=== PATIENT | female | born 1965 | race Caucasian/White ===

== ENCOUNTER 2019-03-30 08:13 | Observation (INO) | payer OTHER ==
[~2019-03-30] VITALS: Ht 167.6 cm; Wt 101.6 kg
[2019-03-30] VITALS (33 sets, daily range): BP systolic 104–168; BP diastolic 54–103; PULSE 68–122; RESP 7–36; Ht 167.6 cm; Wt 101.6 kg
[~2019-03-30 08:13] MED LIST: AMLO-147 PO; LISI2.5T59 PO; LORA10TA3 PO; METF100010 PO
[2019-03-30] MEDS ORDERED: SOD CHLORIDE 0.9% 1,000 ML IV SCH (09:30)
[2019-03-30] MEDS ORDERED: FENTAnyl 50 MCG/ML VIAL IV PRN ×2 (10:30)
[2019-03-30] MEDS ORDERED: ALBUTEROL 0.083% (NEB) 2.5 MG/3 ML AMP HHN PRN ×2 (10:30→13:00)
[2019-03-30] MEDS ORDERED: ONDANSETRON 4 MG INJ IV PRN ×2 (10:30→17:30)
[2019-03-30] MEDS ORDERED: METOCLOPRAMIDE 10 MG INJ IV PRN (10:30)
[2019-03-30] MEDS ORDERED: DIPHENHYDRAMINE 50 MG INJ IV PRN (10:30)
[2019-03-30] MEDS ORDERED: MEPERIDINE 25 MG INJ IV PRN (10:30)
[2019-03-30] MEDS ORDERED: HYDROmorphONE 1 MG/5 ML IV SYRINGE IV PRN (10:30)
[2019-03-30] MEDS ORDERED: DESFLURANE 15 MIN ONE (11:00)
[2019-03-30] MEDS ORDERED: GLYCOPYRROLATE 0.4 MG INJ ONE (11:00)
[2019-03-30] MEDS ORDERED: FENTAnyl 50 MCG/ML VIAL ONE (11:09)
[2019-03-30] MEDS ORDERED: PROVENTIL HFA 6.7GM INHALER ONE (11:10)
[2019-03-30] MEDS ORDERED: LABETALOL HCL 20MG INJ ONE (11:32)
[2019-03-30] MEDS ORDERED: CLINDAMYCIN 900 MG (PMX) 50 ML IVPB ONE (11:36)
[2019-03-30] MEDS ORDERED: SUCCINYLCHOLINE CHLORIDE 100 MG/5 ML SYG IV ONE (11:36)
[2019-03-30] MEDS ORDERED: SUGAMMADEX SODIUM 200 MG/2 ML VIAL IV ONE (11:36)
[2019-03-30] MEDS ORDERED: ROCURONIUM 50 MG INJ ONE (11:36)
[2019-03-30] MEDS ORDERED: PROPOFOL 20 ML ONE (11:36)
[2019-03-30] MEDS ORDERED: LIDOCAINE 100 MG SYRINGE ONE (11:36)
[2019-03-30] MEDS ORDERED: STRONG IODINE 14 ML SOLUTION TOP ONE (11:41)
[2019-03-30] MEDS ORDERED: FERRIC SUBSULFATE 8 GM VIAL TOP ONE (11:46)
[2019-03-30] MEDS ORDERED: DEXAMETHASONE 4 MG/ML 5 ML INJ ONE (12:20)
[2019-03-30] MEDS ORDERED: MIDAZOLAM 1 MG/ML 2 ML INJ ONE (12:28)
[2019-03-30] MEDS ORDERED: IPRATROPIUM (NEB) 0.5 MG/2.5 ML AMP HHN PRN (13:00)
[2019-03-30] MEDS ORDERED: LEVALBUTEROL (NEB) 0.63 MG/3 ML AMP HHN PRN (13:00)
[2019-03-30] MEDS ORDERED: RACEPINEPHRINE 2.25%(NEB) 0.5 ML AMP HHN ONE (13:00)
[2019-03-30] MEDS ORDERED: LEVALBUTEROL (NEB) 1.25 MG/0.5 ML AMP HHN PRN (13:00)
[2019-03-30] MEDS: HYDROmorphONE 1 MG/5 ML IV SYRINGE IV PRN ×2 (13:27→13:40)
[2019-03-30] MEDS ORDERED: morphine 2 MG INJ IV PRN (17:30)
[2019-03-30] MEDS: ACCU-CHEK XX SCH ×2 (17:30→21:00)
[2019-03-30] MEDS ORDERED: HYDROCODONE/APAP (5/325) TAB PO PRN (17:30)
[2019-03-30] MEDS ORDERED: ALBUTEROL/IPRATROPIUM (NEB) 3 ML AMP HHN PRN (17:30)
[2019-03-30] MEDS: INSULIN ASPART [NOVOLOG] 3 ML PEN SC SCH ×2 (18:00→21:21)
[2019-03-30] MEDS ORDERED: DEXTROSE 50% 50 ML SYRINGE IV PRN ×2 (18:00)
[2019-03-30] MEDS ORDERED: GLUCOSE GEL 15 GRAM TUBE BUCCAL PRN (18:00)
[2019-03-30] MEDS ORDERED: GLUCOSE GEL 15 GRAM TUBE PO PRN ×2 (18:00)
[2019-03-30] MEDS ORDERED: GLUCAGON 1 MG INJ IM PRN (18:00)
[2019-03-30] MEDS: metFORMIN 500 MG TAB PO SCH (18:45)
[2019-03-30] MEDS: AMLODIPINE 10 MG TAB PO SCH (18:45)
[2019-03-30] MEDS: LISINOPRIL 5 MG TAB PO SCH (18:45)
[2019-03-30] MEDS: ALBUTEROL/IPRATROPIUM (NEB) 3 ML AMP HHN SCH (21:14)
[2019-03-30] MEDS: ACETAMINOPHEN 325 MG TAB PO PRN (22:30)
[2019-03-31] MEDS ORDERED: ACCU-CHEK XX SCH (02:00)
[2019-03-31 02:10] VITALS: BP 107/58; PULSE 93; RESP 19
[2019-03-31] MEDS: ACCU-CHEK XX SCH ×4 (07:00→21:00)
[2019-03-31] MEDS: INSULIN ASPART [NOVOLOG] 3 ML PEN SC SCH ×4 (08:00→21:00)
[2019-03-31 08:17] VITALS: BP 118/67; PULSE 69; RESP 17
[2019-03-31] MEDS: metFORMIN 500 MG TAB PO SCH ×2 (08:25→17:22)
[2019-03-31] MEDS: LISINOPRIL 5 MG TAB PO SCH (08:39)
[2019-03-31] MEDS: AMLODIPINE 10 MG TAB PO SCH (08:39)
[2019-03-31] MEDS: ALBUTEROL/IPRATROPIUM (NEB) 3 ML AMP HHN SCH ×3 (08:49→20:00)
[2019-03-31] MEDS ORDERED: LORATADINE 10 MG TAB PO SCH (09:00)
[2019-03-31] MEDS: ACETAMINOPHEN 325 MG TAB PO PRN (12:19)
[2019-03-31 14:00] VITALS: BP 134/63; PULSE 78; RESP 18
[2019-03-31 20:00] VITALS: BP 134/85; PULSE 70; RESP 18
== END 2019-03-31 21:30 | disposition home or self-care (01) ==
LOC: SDS 08:13 → REC 14:58 → 5EC 18:10
PROVIDERS: ADMIT Obstetrics & Gynecology; ATTEND Obstetrics & Gynecology
DX: N87.9 Dysplasia of cervix uteri, unspecified (principal); E11.9 Type 2 diabetes mellitus without complications; I10 Essential (primary) hypertension; J45.909 Unspecified asthma, uncomplicated; F41.9 Anxiety disorder, unspecified; E78.5 Hyperlipidemia, unspecified; E66.09 Other obesity due to excess calories; R06.02 Shortness of breath; Z79.4 Long term (current) use of insulin
CPT/HCPCS: 57522; 71045; 80048; 82962; 84703; 85025; 88307; 93005; 94640; 94664; J1100; J1170; J1200; J1815; J2001; J2175; J2250; J2405; J3010; Z7500; Z7512; Z7610; 99217; G0378